=== PATIENT | female | born 1975 | race African-American/Black ===

== ENCOUNTER 2017-09-27 18:54 | Observation (INO) | payer OTHER ==
[~2017-09-27] VITALS: Ht 170.2 cm; Wt 70.5 kg
[~2017-09-27 18:54] MED LIST: DOCO200C PO; IBUP600 PO
[2017-09-27 18:57] VITALS: BP 117/60; PULSE 60; RESP 17; TEMP 97.3; O2SAT 100
[2017-09-27 19:30] VITALS: PULSE 67; RESP 16; O2SAT 100
[2017-09-27] MEDS ORDERED: FLUT1SPR5 EACH NARE (19:34)
[2017-09-27] MEDS ORDERED: SODIUM CHLORIDE 0.9% FLUSH 10 ML FLUSH IVF PRN (19:45)
[2017-09-27] MEDS ORDERED: ASPIRIN 81 MG CHEW TAB PO ONE (19:45)
[2017-09-27] MEDS ORDERED: SODIUM CHLORID 0.9% 500 ML INJ 500 ML IV ONE (19:45)
--- NOTE | 2017-09-27 19:46 | PD ---
HPI Chief Complaint: Chest Pain Time Seen by Provider: 19:31 Travel History International Travel<30 days: No Contact w/Intl Traveler<30days: No Traveled to known affect area: No History of Present Illness HPI 42-year-old female presents to the emergency department by private transportation for evaluation of chest pain. Patient has been having intermittent chest pain 5/10 in intensity 2 weeks. Presently patient rates discomfort as mild and perhaps 2/10 in intensity. Patient does not report any associated symptoms or referred neck jaw back shoulder arm or abdominal pain no nausea no vomiting no sweats no shortness of breath no no near syncope or syncope. Patient denies any known medical concerns denies heart disease hypertension dyslipidemia diabetes or tobaccoism. Patient is unable to identify exacerbating or alleviating factors other than she thinks perhaps chocolate aggravates her symptoms. Patient is taking no medications to address discomfort. Patient has noted some abdominal pain intermittently over the past 2 weeks but none at this time; patient does not make an association between her episodes of chest pain and abdominal pain. Last menstrual period was 09/07/17 and denies . [facility] Past Medical History Narrative Medical Dental infection; dental extraction; no tobacco use; nursing notes reviewed Cancer: No Cardiovascular Problems: No Diabetes: No Endocrine: No Genitourinary: No Hepatitis: No Hiatal Hernia: No Immune Disorder: No Medical other: Yes (INFECTED TOOTH ) Musculoskeletal: No Neurologic: No Psychiatric: No Respiratory: No Thyroid Disease: No Tetanus Vaccination: Unknown Influenza Vaccination: No ?: Not LMP: 09/07/17 Past Surgical History Oral Surgery: Yes (TOOTH EXTRACTIONS) Pacemaker: No Social History Alcohol Use: No Tobacco Use: No Substance Use: No Allergies-Medications (Allergen,Severity, Reaction): Coded Allergies: house dust (Unverified Allergy, Severe, 01/07/17) latex (Unverified Allergy, Severe, 01/07/17) Reported Meds & Prescriptions Reported Meds & Active Scripts Active Reported Flonase Nasal [place] (Fluticasone Nasal [place]) 50 Mcg/Act [place] 50 Mcg EACH NARE BID Review of Systems Except as stated in HPI: all other systems reviewed are Neg General / Constitutional: No: Fever, Chills HENT: No: Congestion Cardiovascular: Positive: Chest Pain or Discomfort Respiratory: No: Cough Gastrointestinal: Positive: Nausea, Abdominal Pain, No: Vomiting Genitourinary: No: Flank Pain Musculoskeletal: No: Myalgias, Arthralgias Skin: No Rash Neurologic: No: Weakness Psychiatric: No: Anxiety Hematologic/Lymphatic: No: Lymph Node Enlargement Physical Exam Narrative GENERAL: Well-developed well-nourished female no acute distress no respiratory distress SKIN: Warm and dry. HEAD: Normocephalic. EYES: No scleral icterus. No injection or drainage. NECK: Supple, trachea midline. No JVD or lymphadenopathy. CARDIOVASCULAR: Regular rate and rhythm without murmurs, gallops, or rubs. Radial and dorsalis pedis pulses 2+ to palpation bilaterally. Chest wall: Nontender to direct palpation. RESPIRATORY: Breath sounds equal bilaterally. No accessory muscle use. GASTROINTESTINAL: Abdomen soft, non-tender, nondistended. MUSCULOSKELETAL: No cyanosis, or edema. BACK: Nontender without obvious deformity. No CVA tenderness. Data Data Last Documented VS Vital Signs Date Time Temp Pulse Resp B/P (MAP) Pulse Ox O2 Delivery O2 Flow Rate FiO2 09/27/17 19:34 16 100 Room Air 09/27/17 19:30 67 09/27/17 18:57 97.3 117/60 (79) Orders Orders Electrocardiogram (09/27/17 19:31) Ckmb (Isoenzyme) Profile (09/27/17 19:31) Complete Blood Count With Diff (09/27/17 19:31) Comprehensive Metabolic Panel (09/27/17 19:31) Magnesium (Mg) (09/27/17 19:31) Prothrombin Time / Inr (Pt) (09/27/17 19:31) Act Partial Throm Time (Ptt) (09/27/17 19:31) Troponin I (09/27/17 19:31) Lipase (09/27/17 19:31) Ecg Monitoring (09/27/17 19:31) Bilateral Bp Monitoring (09/27/17 19:31) Iv Access Insert/Monitor (09/27/17 19:31) Oximetry (09/27/17 19:31) Oxygen Administration (09/27/17 19:31) Aspirin Chew (Aspirin Chew) (09/27/17 19:45) Sodium Chloride 0.9% Flush (Ns Flush) (09/27/17 19:45) Sodium Chlorid 0.9% 500 Ml Inj (Ns 500 M (09/27/17 19:45) Chest, Pa & Lat (09/27/17 19:31) Ed Urine Pregnancytest Poc (09/27/17 19:31) Ketorolac Inj (Toradol Inj) (09/27/17 20:30) CKMB (09/27/17 19:40) CKMB% (09/27/17 19:40) Us Abdomen Gallbladder (09/27/17 ) Admit Order (Ed Use Only) (09/27/17 ) Laboratory Tester / Telemetry RACHAEL.Q8H (09/27/17 23:04) Diet Heart Healthy (09/28/17 Breakfast) Activity Oob With Assistance (09/27/17 23:04) Notify Dr: Other (09/27/17 23:04) Activity Bed Rest With Brp (09/27/17 23:04) Vital Signs (Adult) Q4H (09/27/17 23:04) Cardiac Rhythm .As Directed (09/27/17 23:04) Notify Dr: Other .PRN (09/27/17 23:04) Notify Parameters (09/27/17 23:04) Resp Oxygen Nasal Cannula (09/27/17 ) Ckmb (Isoenzyme) Profile (09/27/17 23:05) Ckmb (Isoenzyme) Profile (09/28/17 02:05) Troponin I (09/27/17 23:05) Troponin I (09/28/17 02:05) Electrocardiogram (09/27/17 23:05) Electrocardiogram (09/28/17 02:05) ^ Obtain (09/27/17 23:04) Sodium Chloride 0.9% Flush (Ns Flush) (09/27/17 23:15) Sodium Chloride 0.9% Flush (Ns Flush) (09/28/17 09:00) Ondansetron Inj (Zofran Inj) (09/27/17 23:15) Nitroglycerin Sl (Nitrostat Sl) (09/27/17 23:15) Alprazolam (Xanax) (09/27/17 23:15) Laboratory Tester / Telemetry RACHAEL.Q8H (09/27/17 23:04) Labs Laboratory Tests Test 09/27/17 19:40 White Blood Count 5.8 TH/MM3 Red Blood Count 4.42 MIL/MM3 Hemoglobin 12.4 GM/DL Hematocrit 38.3 % Mean Corpuscular Volume 86.8 FL Mean Corpuscular Hemoglobin 28.1 PG Mean Corpuscular Hemoglobin Concent 32.4 % Red Cell Distribution Width 13.4 % Platelet Count 149 TH/MM3 Mean Platelet Volume 9.1 FL Neutrophils (%) (Auto) 47.7 % Lymphocytes (%) (Auto) 33.4 % Monocytes (%) (Auto) 10.4 % Eosinophils (%) (Auto) 8.1 % Basophils (%) (Auto) 0.4 % Neutrophils # (Auto) 2.8 TH/MM3 Lymphocytes # (Auto) 1.9 TH/MM3 Monocytes # (Auto) 0.6 TH/MM3 Eosinophils # (Auto) 0.5 TH/MM3 Basophils # (Auto) 0.0 TH/MM3 CBC Comment DIFF FINAL Differential Comment Prothrombin Time 11.3 SEC Prothromb Time International Ratio 1.1 RATIO Activated Partial Thromboplast Time 27.0 SEC Blood Urea Nitrogen 14 MG/DL Creatinine 1.06 MG/DL Random Glucose 70 MG/DL Total Protein 7.5 GM/DL Albumin 3.6 GM/DL Calcium Level 8.7 MG/DL Magnesium Level 2.2 MG/DL Alkaline Phosphatase 60 U/L Aspartate Amino Transf (AST/SGOT) 21 U/L Alanine Aminotransferase (ALT/SGPT) 26 U/L Total Bilirubin 1.3 MG/DL Sodium Level 143 MEQ/L Potassium Level 3.4 MEQ/L Chloride Level 108 MEQ/L Carbon Dioxide Level 26.4 MEQ/L Anion Gap 9 MEQ/L Estimat Glomerular Filtration Rate 68 ML/MIN Total Creatine Kinase 118 U/L Creatine Kinase MB LESS THAN 0.5 NG/ML Troponin I LESS THAN 0.02 NG/ML Lipase 131 U/L [facility] Medical Decision Making Medical Screen Exam Complete: Yes Emergency Medical Condition: Yes Medical Record Reviewed: Yes Interpretation(s) EKG normal sinus rhythm rate [address] elevation consistent with early repolarization/borderline LVH by voltage no reciprocal ischemic changes Chest x-ray: No acute abnormality CBC is automated differential values grossly normal limits Metabolic panel remarkable for mild hypokalemia potassium 3.4 hypoglycemia random glucose of 70 and nonspecific elevation of bilirubin 1.3; cardiac enzymes are not elevated with troponin I less than 0.02, CK 118 not elevated Coags within normal limits Differential Diagnosis Chest pain, ACS, [place], PE, esophageal spasm, biliary colic Narrative Course Patient was intermittent chest pain over the past few weeks with 5/10 intensity chest pain upon arrival currently 2/10 intensity chest pain and upper abdominal pain that seems to be exacerbated by possible fatty foods no known history of cardiac disease or gallbladder disease: Risk factor profile is negative for hypertension dyslipidemia diabetes tobaccoism or premature onset heart disease in family members also no report of clotting disorder. EKG performed which shows nonspecific ST elevation changes consistent with probable early repolarization borderline LVH by voltage criterion no reciprocal ischemic changes. Patient placed on equipment monitor phototypesetting with continuous pulse oximetry IV access obtained specimens collected and sent for resulting patient administered aspirin. Patient's discomfort is reported as 2/10 but other than upon arrival. Lab values found to be grossly normal range except for mild hypokalemia potassium 3.4 glucose of 70 total bilirubin of 1.3 patient examined with mild reproducible tenderness to the right upper quadrant. Patient's pain otherwise over 10 intensity without palpation. Ultrasound gallbladder ordered. Discussed with patient observation admission for chest pain center protocol versus outpatient follow-up with primary care provider nonspecific changes on EKG consistent with probable early repolarization; patient with spouse at bedside and has decided to stay for observation admission for serial enzymes and EKG per chest pain center protocol. 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
[2017-09-27 20:05] LABS: AUTOMATED NEUTROPHIL # 2.8 TH/MM3 (1.8-7.7); BASOPHIL % 0.4 % (0.0-2.0); EOSINOPHIL # 0.5 TH/MM3 (0-0.4); EOSINOPHIL % 8.1 % (0.0-4.0); HEMATOCRIT 38.3 % (35.0-46.0); HEMOGLOBIN 12.4 GM/DL (11.6-15.3); LYMPH % 33.4 % (9.0-44.0); LYMPHOCYTE # 1.9 TH/MM3 (1.0-4.8); MEAN CELL VOLUME 86.8 FL (80.0-100.0); MEAN CORPUSCULAR HEMOGLOBIN 28.1 PG (27.0-34.0); MEAN CORPUSCULAR HGB CONC 32.4 % (32.0-36.0); MEAN PLATELET VOLUME 9.1 FL (7.0-11.0); MONO % 10.4 % (0.0-8.0); MONOCYTE # 0.6 TH/MM3 (0-0.9); NEUT % 47.7 % (16.0-70.0); PLATELET COUNT 149 TH/MM3 (150-450); RED BLOOD COUNT 4.42 MIL/MM3 (4.00-5.30); RED CELL DISTRIBUTION WIDTH 13.4 % (11.6-17.2); WHITE BLOOD COUNT 5.8 TH/MM3 (4.0-11.0)
[2017-09-27 20:17] LABS: ALBUMIN 3.6 GM/DL (3.4-5.0); AST (GOT) 21 U/L (15-37); BICARBONATE 26.4 MEQ/L (21.0-32.0); BLOOD UREA NITROGEN 14 MG/DL (7-18); CALCIUM 8.7 MG/DL (8.5-10.1); CHLORIDE 108 MEQ/L (98-107); CREATININE 1.06 MG/DL (0.50-1.00); GLOMERULAR FILTRATION RATE 68 ML/MIN (>89); GLUCOSE,RANDOM 70 MG/DL (74-106); MAGNESIUM 2.2 MG/DL (1.5-2.5); SODIUM (NA) 143 MEQ/L (136-145)
--- NOTE | 2017-09-27 20:17 | RADRPT ---
EXAM DATE/TIME: 09/27/2017 19:51 [facility] COMPARISON: No previous studies available for comparison. INDICATIONS : Chest pain. MEDICAL HISTORY : None. SURGICAL HISTORY : None. ENCOUNTER: Initial ACUITY: 1 day PAIN SCORE: 8/10 LOCATION: Bilateral chest FINDINGS: PA and lateral views of the chest demonstrate the lungs to be symmetrically aerated without evidence of mass, infiltrate or effusion. The cardiomediastinal contours are unremarkable. Mild scoliosis of the thoracolumbar spine is noted. There is slight elevation of the left hemidiaphragm. CONCLUSION: 1. No acute cardiopulmonary disease. 2. Slight elevation of the left hemidiaphragm. 3. Mild scoliosis of the thoracolumbar spine. Piotr Man MD on September 27, 2017 at 20:14 Board Certified Radiologist. This report was verified electronically.
[2017-09-27 20:18] LABS: INTERNATIONAL NORMALIZED RATIO 1.1 RATIO; PROTHROMBIN TIME - PATIENT 11.3 SEC (9.8-11.6)
[2017-09-27 20:23] LABS: ALKALINE PHOSPHATASE 60 U/L (45-117); ALT (GPT) 26 U/L (10-53); TOTAL BILIRUBIN ADULT 1.3 MG/DL (0.2-1.0); TOTAL PROTEIN 7.5 GM/DL (6.4-8.2); TROPONIN I LESS THAN 0.02 NG/ML (0.02-0.05)
[2017-09-27] MEDS ORDERED: KETOROLAC TROMETHAMINE 30 MG/ML (IVP) VIAL IV PUSH ONE (20:30)
--- NOTE | 2017-09-27 22:24 | RADRPT ---
EXAM DATE/TIME: 09/27/2017 21:43 [facility] COMPARISON: No previous studies available for comparison. INDICATIONS : Chest pain. MEDICAL HISTORY : None. SURGICAL HISTORY : None. ENCOUNTER: Initial ACUITY: 1 day PAIN SCORE: 5/10 LOCATION: Right upper quadrant MEASUREMENTS: LIVER: 13.8 cm length COMMON DUCT: 4 mm RIGHT KIDNEY: 9.9 x 4.9 x 4.0 cm FINDINGS: LIVER: Normal echotexture without focal lesion or ductal dilatation. COMMON DUCT: No intraluminal mass or stone visualized. GALLBLADDER: The gallbladder is contracted and its wall is minimally thickened. No pericholecystic fluid or sonogr aphic Pal's sign is noted. No cholelithiasis is noted. PANCREAS: The visualized portions are within normal limits. RIGHT KIDNEY: No evidence of hydronephrosis, stone, or mass. CONCLUSION: Contracted gallbladder with minimally thickened wall but no pericholecystic fluid, so nographic Pal's sign or cholelithiasis. Piotr Man MD on September 27, 2017 at 22:21 Board Certified Radiologist. This report was verified electronically.
[2017-09-27] MEDS ORDERED: NITROGLYCERIN 0.4 MG SL 25 TABS/BTL SL PRN (23:15)
[2017-09-27] MEDS ORDERED: SODIUM CHLORIDE 0.9% FLUSH 10 ML FLUSH IV FLUSH PRN (23:15)
[2017-09-27] MEDS ORDERED: ALPRAZolam 0.25 MG TAB PO PRN (23:15)
[2017-09-27] MEDS ORDERED: ONDANSETRON HCL 4 MG/2 ML VIAL IV PUSH PRN (23:15)
[2017-09-27 23:59] VITALS: BP 101/56; PULSE 63; RESP 18; TEMP 97.7; O2SAT 100
[2017-09-28 01:09] LABS: TROPONIN I 0.02 NG/ML (0.02-0.05)
[2017-09-28 03:42] LABS: TROPONIN I 0.02 NG/ML (0.02-0.05)
[2017-09-28 04:32] VITALS: BP 92/50; PULSE 52; RESP 18; TEMP 96.3; O2SAT 99
[2017-09-28 04:45] VITALS: PULSE 65
[2017-09-28] MEDS ORDERED: ACETAMINOPHEN 500 MG CPLT PO PRN (07:30)
[2017-09-28 07:55] VITALS: PULSE 60
--- NOTE | 2017-09-28 08:39 | HHI.HP ---
HPI Primary Care Physician Vandana Noel MD Chief Complaint Chest discomfort History of Present Illness 42 year old female without any significant medical history presents to ER for further evaluation of chest discomfort. Onset "at least 2 months." Location generalized chest area, no particular location. Characterized as pressure. Severity usually mild, however yesterdays episode described as moderate severity. No radiation. No associated symptoms of nausea, vomiting, dyspnea, diaphoresis. No known precipitating or relieving factors. Unable to recall discomfort comes on gradually or suddenly. Duration generally minutes. Yesterday's episode lasted longer, unable to provide duration. 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 During ceremonies yesterday experienced intermittent abdominal cramping and a separate account of right anterior chest pressure. Decided to come to ER for further evaluation because last week a good friend had a heart attack. Currently chest pain free. Endorses symptoms may be related to increased situational stress. Review of Systems Endocrine: COMPLAINS OF: Weight gain, Weight loss, Thyroid disease General: No fatigue,weakness, fever, chills, or recent illness. Has been in her general state of health. HEENT: No ESPINOZA, no vision changes, no nasal congestion or drainage, no dysphasia CV: As stated above, no current chest pain or pressure. No palpitations or dizziness. RESP: No SOB, cough, or wheeze GI: No nausea, vomiting, bowel changes, diarrhea, constipation, pain, distention , melena, or blood in the stool. 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 Current increased in stress. 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, has two young children at home, and 's job "stresses her out." SKIN: No rashes, no concerning lesions Past Family Social History Allergies: Coded Allergies: house dust (Unverified Allergy, Severe, 01/07/17) latex (Unverified Allergy, Severe, 01/07/17) Past Medical History None Past Surgical History None Reported Medications Reported Meds & Active Scripts Active Reported Flonase Nasal [place] (Fluticasone Nasal [place]) 50 Mcg/Act [place] 50 Mcg EACH NARE BID Active Ordered Medications Current Medications Medications (Trade) Dose Ordered Sig/Janice Route Start Time Stop Time Status Last Admin (NS Flush) 2 ml UNSCH PRN IV FLUSH 09/27/17 23:15 (NS Flush) 2 ml BID IV FLUSH 09/28/17 09:00 (Zofran Inj) 4 mg Q6H PRN IV PUSH 09/27/17 23:15 (Nitrostat Sl) 0.4 mg Q5M PRN SL 09/27/17 23:15 (Xanax) 0.25 mg Q8H PRN PO 09/27/17 23:15 (Tylenol) 500 mg Q4H PRN PO 09/28/17 07:30 (Aspirin) 325 mg DAILY PO 09/28/17 09:00 Family History Noncontributory for early onset cardiovascular disease Social History No known hypertension, hyperlipidemia, or diabetes. Lifelong non-smoker. Denies any alcohol or illegal drug use. with 2 young children. 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 Exercises 5-6x/weekly including running. 3x/week Strength training and development head. Past cardiac testing None Physical Exam Vital Signs Vital Signs Date Time Temp Pulse Resp B/P (MAP) Pulse Ox O2 Delivery O2 Flow Rate FiO2 09/28/17 07:55 60 09/28/17 04:45 65 09/28/17 04:32 96.3 52 18 92/50 (64) 99 09/27/17 23:59 97.7 63 18 101/56 (71) 100 09/27/17 23:29 21 09/27/17 19:34 16 100 Room Air 09/27/17 19:30 100 Room Air 09/27/17 19:30 67 16 100 Room Air 09/27/17 18:57 97.3 60 17 117/60 (79) 100 Physical Exam GENERAL: Alert WN, WD, NAD, pleasant, -Algerian female HEAD: NC, AT CV: Bradycardiac RR, without murmur, rub, gallop, no JVD, S1-S2 no S3-S4. RESP: Clear lungs throughout bilateral, no crackles, wheeze, rhonchi, symmetrical chest rise, nonlabored, able to speak in full sentences ABD: Soft, NT, ND, no masses, positive bowel tones EXT: Pulses +2x4, no dependent edema MS: Normal tone x4 extremities, nontender, no obvious deformities, full range of motion NEURO: CN II through CN XII grossly intact, motor strength 5/5, gait WNL PSYCH: A+O x3, pleasant affect, appropriate speech, mood, insight and judgment SKIN: Normal turgor, normal texture, no lesions, no rashes Laboratory Laboratory Tests Test 09/27/17 19:40 09/27/17 23:59 09/28/17 02:48 White Blood Count 5.8 Red Blood Count 4.42 Hemoglobin 12.4 Hematocrit 38.3 Mean Corpuscular Volume 86.8 Mean Corpuscular Hemoglobin 28.1 Mean Corpuscular Hemoglobin Concent 32.4 Red Cell Distribution Width 13.4 Platelet Count 149 Mean Platelet Volume 9.1 Neutrophils (%) (Auto) 47.7 Lymphocytes (%) (Auto) 33.4 Monocytes (%) (Auto) 10.4 Eosinophils (%) (Auto) 8.1 Basophils (%) (Auto) 0.4 Neutrophils # (Auto) 2.8 Lymphocytes # (Auto) 1.9 Monocytes # (Auto) 0.6 Eosinophils # (Auto) 0.5 Basophils # (Auto) 0.0 CBC Comment DIFF FINAL Differential Comment Prothrombin Time 11.3 Prothromb Time International Ratio 1.1 Activated Partial Thromboplast Time 27.0 Blood Urea Nitrogen 14 Creatinine 1.06 Random Glucose 70 Total Protein 7.5 Albumin 3.6 Calcium Level 8.7 Magnesium Level 2.2 Alkaline Phosphatase 60 Aspartate Amino Transf (AST/SGOT) 21 Alanine Aminotransferase (ALT/SGPT) 26 Total Bilirubin 1.3 Sodium Level 143 Potassium Level 3.4 Chloride Level 108 Carbon Dioxide Level 26.4 Anion Gap 9 Estimat Glomerular Filtration Rate 68 Total Creatine Kinase 118 102 101 Creatine Kinase MB LESS THAN 0.5 LESS THAN 0.5 LESS THAN 0.5 Troponin I LESS THAN 0.02 0.02 0.02 Lipase 131 Result Diagram: 09/27/17193909/27/171939 Imaging Last 48 hours Impressions Chest X-Ray 09/27/171930 Signed Impressions: Service Date/Time: Wednesday, September 27, 2017 19:51 - CONCLUSION: 1. No acute cardiopulmonary disease. 2. Slight elevation of the left hemidiaphragm. 3. Mild scoliosis of the thoracolumbar spine. Piotr Man MD Gall Bladder Ultrasound 09/27/17 0000 Signed Impressions: Service Date/Time: Wednesday, September 27, 2017 21:43 - CONCLUSION: Contracted gallbladder with minimally thickened wall but no pericholecystic fluid, sonographic Pal's sign or cholelithiasis. Piotr Man MD Course EKG 1st EKG-1st AVB, bradycardiac sinus arrhythmia, nonspecific st elevation 2nd EKG-NSB, wenckebach-mobitz I 3rd EKG-1st AVB, bradycardiac sinus arrhythmia, nonspecific st t segments changes Caprini VTE Risk Assessment Caprini VTE Risk Assessment: No/Low Risk (score <= 1) Caprini Risk Assessment Model Point Value = 1 Point Value = 2 Point Value = 3 Point Value = 5 Age 41-60 Minor surgery BMI > 25 kg/m2 Swollen legs Varicose veins or History of unexplained or recurrent spontaneous Oral contraceptives or hormone replacement Sepsis (< 1 month) Serious lung disease, including pneumonia (< 1 month) Abnormal pulmonary function Acute myocardial infarction Congestive heart failure (< 1 month) History of inflammatory bowel disease Medical patient at bed rest Age 61-74 Arthroscopic surgery Major open surgery (> 45 min) Laparoscopic surgery (> 45 min) Malignancy Confined to bed (> 72 hours) Immobilizing plaster cast Central venous access Age >= 75 History of VTE Family history of VTE Factor V Leiden Prothrombin [id number] Lupus anticoagulant Anticardiolipin antibodies Elevated serum homocysteine Heparin-induced thrombocytopenia Other congenital or acquired thrombophilia Stroke (< 1 month) Elective arthroplasty Hip, pelvis, or leg fracture Acute spinal cord injury (< 1 month) Prophylaxis Regimen Total Risk Factor Score Risk Level Prophylaxis Regimen 0-1 Low Early ambulation 2 Moderate Order ONE of the following: *Sequential Compression Device (SCD) *Heparin 5000 units SQ BID 3-4 Higher Order ONE of the following medications: *Heparin 5000 units SQ TID *Enoxaparin/Lovenox 40 mg SQ daily (WT < 150 kg, CrCl > 30 mL/min) *Enoxaparin/Lovenox 30 mg SQ daily (WT < 150 kg, CrCl > 10-29 mL/min) *Enoxaparin/Lovenox 30 mg SQ BID (WT < 150 kg, CrCl > 30 mL/min) AND/OR *Sequential Compression Device (SCD) 5 or more Highest Order ONE of the following medications: *Heparin 5000 units SQ TID (Preferred with Epidurals) *Enoxaparin/Lovenox 40 mg SQ daily (WT < 150 kg, CrCl > 30 mL/min) *Enoxaparin/Lovenox 30 mg SQ daily (WT < 150 kg, CrCl > 10-29 mL/min) *Enoxaparin/Lovenox 30 mg SQ BID (WT < 150 kg, CrCl > 30 mL/min) AND *Sequential Compression Device (SCD) Assessment and Plan Assessment and Plan #1 Atypical chest discomfort-admitted to chest pain center. ACS ruled out with 3 sets of EKGs and cardiac enzymes. Monitored overnight on telemetry. Will been seen and evaluated by Dr. Isacc Ramos later this morning. Discussed possible exercise cardiac testing later after being seen by metrology technician. Further testing will be determined by metrology technician. Patient agreeable to plan of care. Discomfort may be somatic symptoms related in increased stress since December 2016. #2 Mild renal insufficiency-discussed with patient, follow up with PCP. #3 Hypokalemia-Potassium 20 mEq administered, follow up with PCP, no acute causes for hypokalemia identified Galina Xiong September 28, 2017 08:39
[2017-09-28] MEDS ORDERED: SODIUM CHLORIDE 0.9% FLUSH 10 ML FLUSH IV FLUSH SCH (09:00)
[2017-09-28] MEDS ORDERED: ASPIRIN 325 MG TAB PO SCH (09:00)
--- NOTE | 2017-09-28 09:41 | PD.CARD.PN ---
Subjective Subjective Remarks The patient is medical records were reviewed, laboratory data reviewed, radiographic data reviewed and the patient was discussed with nurse practitioner. The patient was then seen and examined personally. I am in agreement with the recorded information. Assessment and plan were discussed and implemented. In short this lady presents with vague nonpainful discomfort in her chest area which she has great difficulty in describing. In discussion with the patient and her it is ascertained that they are experiencing a great deal of increased stress over the last year or so since she took a position with [employer], he has been put into position political pressure and they have 2 small children. It seems highly likely from the history that this is a stress -induced issue however careful evaluation of her cardiac status and further follow-up with her primary care physician Dr. Noel is indicated. Objective Medications Current Medications Medications (Trade) Dose Ordered Sig/Janice Route Start Time Stop Time Status Last Admin (NS Flush) 2 ml UNSCH PRN IV FLUSH 09/27/17 23:15 (NS Flush) 2 ml BID IV FLUSH 09/28/17 09:00 09/28/17 09:00 (Zofran Inj) 4 mg Q6H PRN IV PUSH 09/27/17 23:15 (Nitrostat Sl) 0.4 mg Q5M PRN SL 09/27/17 23:15 (Xanax) 0.25 mg Q8H PRN PO 09/27/17 23:15 (Tylenol) 500 mg Q4H PRN PO 09/28/17 07:30 (Aspirin) 325 mg DAILY PO 09/28/17 09:00 09/28/17 09:00 Vital Signs / I&O Vital Signs Date Time Temp Pulse Resp B/P (MAP) Pulse Ox O2 Delivery O2 Flow Rate FiO2 09/28/17 07:55 60 09/28/17 04:45 65 09/28/17 04:32 96.3 52 18 92/50 (64) 99 09/27/17 23:59 97.7 63 18 101/56 (71) 100 09/27/17 23:29 21 09/27/17 19:34 16 100 Room Air 09/27/17 19:30 100 Room Air 09/27/17 19:30 67 16 100 Room Air 09/27/17 18:57 97.3 60 17 117/60 (79) 100 Physical Exam Head eyes ears nose and throat are unremarkable Neck supple no JVD masses nodes or bruits Cardiovascular reveals a regular sinus rhythm no chest wall tenderness no gallops rubs or murmurs The abdomen soft nontender with no guarding or rebound no masses Extremities reveal no clubbing cyanosis or edema and good pulses distally Laboratory Laboratory Tests Test 09/27/17 19:40 09/27/17 23:59 09/28/17 02:48 White Blood Count 5.8 TH/MM3 Red Blood Count 4.42 MIL/MM3 Hemoglobin 12.4 GM/DL Hematocrit 38.3 % Mean Corpuscular Volume 86.8 FL Mean Corpuscular Hemoglobin 28.1 PG Mean Corpuscular Hemoglobin Concent 32.4 % Red Cell Distribution Width 13.4 % Platelet Count 149 TH/MM3 Mean Platelet Volume 9.1 FL Neutrophils (%) (Auto) 47.7 % Lymphocytes (%) (Auto) 33.4 % Monocytes (%) (Auto) 10.4 % Eosinophils (%) (Auto) 8.1 % Basophils (%) (Auto) 0.4 % Neutrophils # (Auto) 2.8 TH/MM3 Lymphocytes # (Auto) 1.9 TH/MM3 Monocytes # (Auto) 0.6 TH/MM3 Eosinophils # (Auto) 0.5 TH/MM3 Basophils # (Auto) 0.0 TH/MM3 CBC Comment DIFF FINAL Differential Comment Prothrombin Time 11.3 SEC Prothromb Time International Ratio 1.1 RATIO Activated Partial Thromboplast Time 27.0 SEC Blood Urea Nitrogen 14 MG/DL Creatinine 1.06 MG/DL Random Glucose 70 MG/DL Total Protein 7.5 GM/DL Albumin 3.6 GM/DL Calcium Level 8.7 MG/DL Magnesium Level 2.2 MG/DL Alkaline Phosphatase 60 U/L Aspartate Amino Transf (AST/SGOT) 21 U/L Alanine Aminotransferase (ALT/SGPT) 26 U/L Total Bilirubin 1.3 MG/DL Sodium Level 143 MEQ/L Potassium Level 3.4 MEQ/L Chloride Level 108 MEQ/L Carbon Dioxide Level 26.4 MEQ/L Anion Gap 9 MEQ/L Estimat Glomerular Filtration Rate 68 ML/MIN Total Creatine Kinase 118 U/L 102 U/L 101 U/L Creatine Kinase MB LESS THAN 0.5 NG/ML LESS THAN 0.5 NG/ML LESS THAN 0.5 NG/ML Troponin I LESS THAN 0.02 NG/ML 0.02 NG/ML 0.02 NG/ML Lipase 131 U/L Imaging Last 24 hours Impressions Chest X-Ray 09/27/17 1931 Signed Impressions: Service Date/Time: Wednesday, September 27, 2017 19:51 - CONCLUSION: 1. No acute cardiopulmonary disease. 2. Slight elevation of the left hemidiaphragm. 3. Mild scoliosis of the thoracolumbar spine. Piotr Man MD Assessment and Plan Problem List: (1) Atypical chest pain ICD Codes: R07.89 - Other chest pain Status: Acute Plan: Rule out ACS and ischemic heart disease using standard chest pain center protocol (2) Elevated hemidiaphragm ICD Codes: J98.6 - Disorders of diaphragm Status: Chronic Plan: Recommend discussion of this issue with her primary care physician with comparison to old record (3) Hypokalemia ICD Codes: E87.6 - Hypokalemia Status: Acute Plan: Will replace the potassium acutely and discuss the possible etiology. This along with her mildly abnormal renal function should be discussed with her primary care physician postdischarge. Isacc Ramos MD September 28, 2017 09:40
--- NOTE | 2017-09-28 09:44 | EKG ---
Date Performed: 09/28/2017 Time Performed: 00:17:51 PTAGE: 42 years EKG: Sinus rhythm with changes suggesting Mobitz type I winky block block NONSPECIFIC ST ELEVATION ABNORMAL RHYTHM ECG PREVIOUS TRACING : 09/27/2017 19.22 DOCTOR: Isacc Ramos Interpretating Date/Time 09/28/2017 09:42:48
[2017-09-28] MEDS ORDERED: POTASSIUM CHLORIDE 20 MEQ CONTROLLED RELEASE TAB PO ONE (09:45)
--- NOTE | 2017-09-28 09:46 | EKG ---
Date Performed: 09/28/2017 Time Performed: 01:48:44 PTAGE: 42 years EKG: SINUS BRADYCARDIA WITH FIRST DEGREE AV BLOCK NONSPECIFIC ST & T-WAVE ABNORMALITY ABNORMAL E CG INTERPRETATION BASED ON A DEFAULT AGE OF 39 YEARS No significant change PREVIOUS TRACING : 09/28/2017 00.17 DOCTOR: Isacc Ramos Interpretating Date/Time 09/28/2017 09:44:52
--- NOTE | 2017-09-28 10:46 | HHI.DCPOC ---
Discharge Care Plan Diagnosis: (1) Atypical chest pain (2) Elevated hemidiaphragm (3) Hypokalemia Goals to Promote Your Health * To prevent worsening of your condition and complications * To maintain your health at the optimal level Directions to Meet Your Goals Take your medications as prescribed Follow your dietary instruction Follow activity as directed Keep your appointments as scheduled Take your immunizations and boosters as scheduled If your symptoms worsen call your PCP, if no PCP go to Urgent Care Center or Emergency Room Smoking is Dangerous to Your Health. Avoid second hand smoke Call the 24-hour hour crisis hotline for domestic abuse at [facility] September 28, 2017 10:46
--- NOTE | 2017-09-28 13:40 | EKG ---
Date Performed: 09/27/2017 Time Performed: 19:22:34 PTAGE: 42 years EKG: Sinus rhythm NONSPECIFIC ST ELEVATION ABNORMAL RHYTHM ECG NO PREVIOUS TRACING Diffuse ST elevation, consider pericarditis DOCTOR: Aidan Aburto Interpretating Date/Time 09/28/2017 13:38:57
--- NOTE | 2017-09-29 16:22 | TR ---
Date Performed: 09/28/2017 Time Performed: 09:59:32 DOCTOR: Liam Pringle DRUG LIST: CLINICAL HISTORY: REASON FOR TEST: Chest pain REASON FOR ENDING: OBSERVATION: CONCLUSION: [place] protocol completed. Stopped sec to exceeding target heart rate. Maximum BT=349 Target HR Achieved=89.0% Maximum ZV=935/84 Total Exercise Time=11:17. No reprod chest discomfort. N o ectopy. T wave inversion stage 2 and stage 3, resolved during recovery. No st segments are upslopin g, nondiagnosic finding. . Great exercise tolerance. Normal bp response. Recovery quick and unremark able. COMMENTS: Patient exercised using the [place] protocol. No electrocardiographic changes were seen to suggest ischemia. Hemodynamic response to exercise was normal. No significant arrhythmia was prese nt.
== END 2017-09-28 11:22 | disposition home or self-care (01) ==
LOC: NEPC 18:54 → NEDA 23:07 → NEPHCDU 23:57
PROVIDERS: ADMIT Internal Medicine Interventional Cardiology; ATTEND Internal Medicine Interventional Cardiology
DX: R07.89 Other chest pain (principal); N28.9 Disorder of kidney and ureter, unspecified; E87.6 Hypokalemia; R10.9 Unspecified abdominal pain; K04.7 Periapical abscess without sinus; Z79.899 Other long term (current) drug therapy; R94.31 Abnormal electrocardiogram [ECG] [EKG]; I44.0 Atrioventricular block, first degree; J98.6 Disorders of diaphragm
CPT/HCPCS: 71046; 76705; 80053; 82550; 82552; 83690; 83735; 84484; 84703; 85025; 85610; 85730; 93005; 93017; 96360; 99285; G0378; J7040